=== PATIENT | female | born 1980 | race Caucasian/White ===

== ENCOUNTER → 2021-03-25 | Outpatient (CLI) | payer OTHER ==
[2021-03-25 14:04] LABS: BASO # 0.03 K/mm3 (0.02-0.10); EOS # 0.05 K/mm3 (0.04-0.40); EOS % 0.7 % (1.0-5.0); HEMATOCRIT 43.1 % (37.0-47.0); HEMOGLOBIN 14.2 g/dL (12.5-16.0); LYMPH# 2.51 K/mm3 (1.50-4.00); MEAN CELL VOLUME 93 fl (78-100); MEAN CORPUSCULAR HEMOGLOBIN 31 pg (27-31); MEAN CORPUSCULAR HGB CONC 33 g/dL (33-37); MEAN PLATELET VOLUME 9.5 fl (7.4-10.4); MONO # 0.57 K/mm3 (0.20-0.80); NEU # 3.57 K/mm3 (1.40-6.50); PLATELET COUNT 274 K/mm3 (130-400); RED BLOOD COUNT 4.65 M/mm3 (4.10-5.30); RED CELL DISTRIBUTION WIDTH 12.7 % (11.5-14.5); WHITE BLOOD COUNT 6.7 K/mm3 (4.8-10.8)
[2021-03-25 14:17] LABS: ALBUMIN 4.4 g/dL (3.5-5.0); POTASSIUM 3.9 mmol/L (3.5-5.1)
[2021-03-25 14:18] LABS: CALCIUM 9.3 mg/dL (8.3-10.5)
[2021-03-25 14:20] LABS: TOTAL PROTEIN 7.4 g/dL (6.4-8.3)
[2021-03-25 14:22] LABS: TOTAL BILIRUBIN 0.8 mg/dL (0.2-1.2)
== END ==
LOC: LAB 13:51
PROVIDERS: Family Medicine
DX: Z00.00 Encounter for general adult medical examination without abnormal findings (principal); E78.5 Hyperlipidemia, unspecified

== ENCOUNTER → 2022-03-01 | Outpatient (CLI) | payer OTHER | LOC: MAMMO 14:19 | DX: Z12.31 Encounter for screening mammogram for malignant neoplasm of breast (principal) ==